=== PATIENT | male | born 1995 | race Caucasian/White ===

== ENCOUNTER 2016-11-25 09:48 | Emergency (ER) | payer OTHER ==
[~2016-11-25] VITALS: Ht 175.3 cm; Wt 68.2 kg
[2016-11-25 11:41] VITALS: BP 154/80; PULSE 60; TEMP 98
== END 2016-11-25 11:42 | disposition home or self-care (01) ==
LOC: COL.ER 09:48
DX: L23.7 Allergic contact dermatitis due to plants, except food (principal)
CPT/HCPCS: J1100